=== PATIENT | male | born 1970 | race Caucasian/White ===

== ENCOUNTER → 2017-07-16 | Outpatient (REF) | LOC: WSOH 18:30 | DX: Z02.89 Encounter for other administrative examinations (principal) ==

== ENCOUNTER 2019-10-25 05:31 | Day surgery (SDC) | payer OTHER ==
[~2019-10-25] VITALS: Ht 172.7 cm; Wt 77.6 kg
[2019-10-25 06:21] VITALS: BP 125/85; PULSE 80; TEMP 97.9
[2019-10-25 09:13] VITALS: BP 131/89; PULSE 82
--- NOTE | 2019-10-25 09:13 | NUR ---
Patient returns to room 7 per cart from PACU accompanied by Ren MARKS and is awake and alert. IV fluids infusing. Scrotal dressing clean and dry with scrotal support on. Denies pain or nausea. Temp 97.8 and room air sats 96%. Spouse in room.
[2019-10-25] MEDS ORDERED: BACITRACIN Z500 U/GM TP (09:22)
[2019-10-25] MEDS ORDERED: STOOL SOFTENER100 M2 PO (09:24)
[2019-10-25] MEDS ORDERED: NORCO 325 MG-51 TAB PO (09:25)
[2019-10-25 09:28] VITALS: BP 135/90; PULSE 78
--- NOTE | 2019-10-25 09:28 | NUR ---
Sipping on water and continues to deny pain or nausea.
[2019-10-25 09:43] VITALS: BP 125/92; PULSE 71
--- NOTE | 2019-10-25 09:43 | NUR ---
Eating muffin and drinking orange juice. Continues to deny pain or nausea.
[2019-10-25 09:58] VITALS: BP 126/82; PULSE 88
--- NOTE | 2019-10-25 09:58 | NUR ---
Continues to deny pain or nausea. IV fluids infusing.
--- NOTE | 2019-10-25 10:03 | NUR ---
Ambulatory to the restroom and is able to void and returns to room. Tolerates activity well.
[2019-10-25 10:11] VITALS: BP 131/89; PULSE 82; TEMP 97.8
--- NOTE | 2019-10-25 10:15 | NUR ---
IV discontinued and site is free of redness. Patient dresses self. Spouse in room.
--- NOTE | 2019-10-25 10:18 | NUR ---
Patient states that he is beginning to have more incisional soreness after being up to the bathroom. Percocet 5mg one tab given for pain.
--- NOTE | 2019-10-25 10:29 | NUR ---
Given dismissal instructions and voices understanding of these. Provided scripts for [place], Colace, and bacitracin ointment. Provided box of 4x4 fluffs if needed for drainage.
--- NOTE | 2019-10-25 10:33 | NUR ---
Patient dismissed to home driven by spouse and taken to the front door per wheelchair by RN and assisted into car with dismissal instructions in hand.
== END 2019-10-25 10:33 | disposition home or self-care (01) ==
LOC: SDCO 05:31
DX: N43.40 Spermatocele of epididymis, unspecified (principal); E78.5 Hyperlipidemia, unspecified; Z82.49 Family history of ischemic heart disease and other diseases of the circulatory system; Z80.51 Family history of malignant neoplasm of kidney
CPT/HCPCS: J0690; J1100; J1885; J2405; J2704; J3010; J7120

== ENCOUNTER 2021-08-09 06:21 | Day surgery (SDC) | payer OTHER ==
[~2021-08-09] VITALS: Ht 175.3 cm; Wt 74.8 kg
[~2021-08-09 06:21] MED LIST: BACITRACIN Z500 U/GM TP; NORCO 325 MG-51 TAB PO; STOOL SOFTENER100 M2 PO
[2021-08-09 07:02] VITALS: BP 121/79; PULSE 77; TEMP 98.2
[2021-08-09 07:50] VITALS: BP 101/67; PULSE 71; TEMP 97.1
--- NOTE | 2021-08-09 07:50 | NUR ---
PATIENT TRANSPORTED PER CART FROM GI SUITE TO BAY 3 ACCOMPANIED BY ENDO RN. PATIENT AMBULATED FROM CART TO CHAIR WITH 1 ASSIST, SLOW STEADY GAIT. IN ROOM. MONITORS APPLIED. VSS ON ROOM AIR. PATIENT TALKS WITH STAFF AND . VERBAL REPORT RECIEVED.
[2021-08-09 08:00] VITALS: BP 107/88; PULSE 74
--- NOTE | 2021-08-09 08:10 | NUR ---
VSS ON ROOM AIR. PATIENT TOLERATES MUFFIN AND DRINK WITHOUT PROBLEMS. DOCTOR IN ROOM AND SPEAKS WITH PATIENT AND .
[2021-08-09 08:15] VITALS: BP 111/78; PULSE 63
[2021-08-09 08:25] VITALS: BP 111/80; PULSE 65
--- NOTE | 2021-08-09 08:26 | NUR ---
VSS ON ROOM AIR. PATIENT DENIES DISCOMFORT AND NAUSEA. IV DC'D WITH CATHETER TIP INTACT. PRESSURE AND BANDAGE APPLIED. 0830 DISCHARGE INSTRUCTIONS GIVEN VERBAL AND DISCHARGE PACKET PROVIDED. QUESTIONS ANSWERED AND PATIENT AND VOICED UNDERSTANDING. PATIENT CHANGES INTO STREET CLOTHES. 0837 PATIENT DISCHARGED PER WHEEL CHAIR ACCOMPANIED BY AMB RN TO PRIVATE VECHILE DRIVEN BY .
== END 2021-08-09 08:37 | disposition home or self-care (01) ==
LOC: SDCO 06:21
DX: Z12.11 Encounter for screening for malignant neoplasm of colon (principal); D12.0 Benign neoplasm of cecum; Z20.822 Contact with and (suspected) exposure to COVID-19
CPT/HCPCS: J2704; J3010; J7030